=== PATIENT | male | born 1975 | race African-American/Black ===

== ENCOUNTER 2020-10-04 19:20 | Emergency (ER) | payer MEDICAID ==
[~2020-10-04] VITALS: Ht 182.9 cm; Wt 109.0 kg
[2020-10-04 21:46] LABS: BASOPHILS % 0.8 % (0.0-2.0); HEMATOCRIT. 39.9 % (42.0-52.0); HEMOGLOBIN. 13.2 g/dL (14.0-18.0); LYMPHOCYTES % 47.6 % (20.0-50.0); MEAN CORPUSCULAR HEMOGLOBIN 28.4 pg (28.0-32.0); MEAN CORPUSCULAR VOLUME 85.9 fL (80.0-94.0); MONOCYTES % 8.7 % (2.0-8.0); NEUTROPHILS % 39.9 % (40.0-76.0); PLATELET 345 x1000/uL (130-400); RED BLOOD CELL COUNT 4.65 mill/uL (4.7-6.1); RED CELL DISTRIBUTION WIDTH 19.5 % (11.6-14.6)
[2020-10-04 21:49] LABS: CHLORIDE 108 mEq/L (98-107)
[2020-10-04 23:54] VITALS: BP 137/98
== END 2020-10-04 23:55 | disposition home or self-care (01) ==
LOC: ER 19:20
DX: R07.9 Chest pain, unspecified (principal); R11.2 Nausea with vomiting, unspecified; R19.7 Diarrhea, unspecified; I10 Essential (primary) hypertension
CPT/HCPCS: 36415; 71045; 80053; 83880; 84484; 85025; 93005; 99285

== ENCOUNTER 2020-10-06 21:53 | Emergency (ER) | payer MEDICAID ==
[~2020-10-06] VITALS: Ht 175.3 cm; Wt 100.0 kg
[2020-10-06 22:51] LABS: CHLORIDE 98 mEq/L (98-107)
[2020-10-06 23:39] LABS: BASOPHILS % 0.3 % (0.0-2.0); EOSINOPHILS % 0.2 % (0.0-5.0); HEMATOCRIT. 45.2 % (42.0-52.0); LYMPHOCYTES % 10.9 % (20.0-50.0); MEAN CORPUSCULAR HEMOGLOBIN 28.2 pg (28.0-32.0); MEAN PLATELET VOLUME 7.7 fl (7.4-10.4); MONOCYTES % 5.8 % (2.0-8.0); NEUTROPHILS % 82.8 % (40.0-76.0); PLATELET 365 x1000/uL (130-400); RED BLOOD CELL COUNT 5.32 mill/uL (4.7-6.1); RED CELL DISTRIBUTION WIDTH 19.5 % (11.6-14.6)
[2020-10-06] MEDS ORDERED: IBUPROFEN 600MG TABLET PO ONE (23:45)
[2020-10-06] MEDS ORDERED: LORAZEPAM 1MG TABLET PO ONE (23:45)
[2020-10-07] MEDS ORDERED: MORPHINE SULFATE 4 MG/ML CPJ (NOT FOR IM USE) IV STA (00:15)
[2020-10-07] MEDS ORDERED: ONDANSETRON HCL 4MG/2ML INJ IV STA (00:15)
[2020-10-07 00:28] LABS: ETHANOL BLOOD < 10 mg/dL
[2020-10-07] MEDS ORDERED: LORAZEPAM 2MG/ML CPJ IV ONE (00:30)
[2020-10-07] MEDS ORDERED: IBUP-2028 MT (03:29)
[2020-10-07] MEDS ORDERED: ONDA4TAB5 MT (03:29)
[2020-10-07 04:20] VITALS: BP 119/69
== END 2020-10-07 04:36 | disposition home or self-care (01) ==
LOC: ER 21:53
DX: R07.89 Other chest pain (principal); F41.9 Anxiety disorder, unspecified; I10 Essential (primary) hypertension; F20.9 Schizophrenia, unspecified; F32.9 Major depressive disorder, single episode, unspecified
CPT/HCPCS: 36415; 71045; 76705; 80053; 80320; 83690; 83880; 84484; 85025; 93005; 96374; 96375; 99285; J2060; J2270; J2405; G0480

== ENCOUNTER 2021-04-17 11:15 | Emergency (ER) | payer MEDICAID ==
[~2021-04-17] VITALS: Ht 180.3 cm; Wt 118.0 kg
[~2021-04-17 11:15] MED LIST: IBUP-2028 MT; ONDA4TAB5 MT
[2021-04-17 12:05] LABS: BASOPHILS % 0.5 % (0.0-2.0); EOSINOPHILS % 1.4 % (0.0-5.0); HEMATOCRIT. 44.7 % (42.0-52.0); LYMPHOCYTES % 30.2 % (20.0-50.0); MEAN CORPUSCULAR HEMOGLOBIN 29.9 pg (28.0-32.0); MEAN CORPUSCULAR VOLUME 89.1 fL (80.0-94.0); MEAN PLATELET VOLUME 7.7 fl (7.4-10.4); MONOCYTES % 7.5 % (2.0-8.0); NEUTROPHILS % 60.4 % (40.0-76.0); PLATELET 268 x1000/uL (130-400); RED BLOOD CELL COUNT 5.02 mill/uL (4.7-6.1); RED CELL DISTRIBUTION WIDTH 15.9 % (11.6-14.6)
[2021-04-17 12:08] LABS: CHLORIDE 107 mEq/L (98-107)
[2021-04-17] MEDS ORDERED: ASPIRIN 81MG TABLET PO NR (12:15)
[2021-04-17] MEDS ORDERED: ONDANSETRON HCL 4MG/2ML INJ IV NR (13:45)
[2021-04-17] MEDS ORDERED: RISP1TAB97 MT (16:38)
[2021-04-17] MEDS ORDERED: ZYDS20 MT (16:39)
[2021-04-17 18:00] VITALS: BP 149/91
== END 2021-04-17 18:29 | disposition home or self-care (01) ==
LOC: ER 11:31
DX: R07.89 Other chest pain (principal); I10 Essential (primary) hypertension; Z86.59 Personal history of other mental and behavioral disorders
CPT/HCPCS: 36415; 71045; 80053; 83690; 83880; 84484; 85025; 85610; 93005; 96374; 99285; J2405; Z7610

== ENCOUNTER 2022-05-09 05:29 | Emergency (ER) | payer MEDICAID ==
[~2022-05-09] VITALS: Ht 180.3 cm; Wt 87.0 kg
[~2022-05-09 05:29] MED LIST changes: +RISP1TAB97 MT; +ZYDS20 MT
[2022-05-09] MEDS ORDERED: ACETAMINOPHEN 325MG TABLET PO ONE (06:00)
[2022-05-09 06:37] LABS: CHLORIDE 105 mEq/L (98-107)
[2022-05-09 06:44] LABS: ETHANOL BLOOD < 10 mg/dL
[2022-05-09 08:17] LABS: BASOPHILS % 0.3 % (0.0-2.0); EOSINOPHILS % 2.3 % (0.0-5.0); HEMATOCRIT. 42.4 % (42.0-52.0); HEMOGLOBIN. 14.4 g/dL (14.0-18.0); LYMPHOCYTES % 26.2 % (20.0-50.0); MEAN CORPUSCULAR HEMOGLOBIN 30.7 pg (28.0-32.0); MEAN CORPUSCULAR VOLUME 90.3 fL (80.0-94.0); MONOCYTES % 9.9 % (2.0-8.0); NEUTROPHILS % 61.3 % (40.0-76.0); RED CELL DISTRIBUTION WIDTH 14.1 % (11.6-14.6)
[2022-05-09 08:44] LABS: MEAN PLATELET VOLUME 8.4 fl (7.4-10.4)
[2022-05-09 08:45] LABS: PLATELET 309 x1000/uL (130-400)
[2022-05-09 09:03] LABS: CLARITY URINE CLEAR (CLEAR); COLOR URINE YELLOW (YELLOW); KETONES URINE NEGATIVE (NEGATIVE); LEUKOCYTE ESTERASE URINE NEGATIVE (NEGATIVE); NITRITE URINE NEGATIVE (NEGATIVE); OCCULT BLOOD URINE 1+ (NEGATIVE); PROTEIN URINE NEGATIVE (NEGATIVE); SPECIFIC GRAVITY URINE 1.005 (1.005-1.030); UROBILINOGEN URINE 0.2 E.U./dL (0.2-1.0)
[2022-05-09 09:21] LABS: *AMPHETAMINES SCREEN URINE PRESUMTIVE POSITIVE (NEGATIVE); *BARBITURATES SCREEN URINE NEGATIVE (NEGATIVE); *BENZODIAZEPINES SCREEN URINE NEGATIVE (NEGATIVE); *COCAINE SCREEN URINE NEGATIVE (NEGATIVE); CANNABINOID URINE SCREEN NEGATIVE (NEGATIVE); METHADONE URINE SCREEN NEGATIVE (NEGATIVE); OPIATES URINE SCREEN NEGATIVE (NEGATIVE); PHENCYCLIDINE URINE SCREEN NEGATIVE (NEGATIVE)
[2022-05-09 12:27] VITALS: BP 139/87
== END 2022-05-09 12:30 | disposition home or self-care (01) ==
LOC: ER 05:29
DX: R21 Rash and other nonspecific skin eruption (principal); F20.9 Schizophrenia, unspecified
CPT/HCPCS: 36415; 80053; 80305; 80320; 81003; 85025; 99283; G0480

== ENCOUNTER 2024-02-09 10:26 | Emergency (ER) | payer MEDICAID ==
[~2024-02-09] VITALS: Ht 172.7 cm; Wt 82.0 kg
[~2024-02-09 10:26] MED LIST changes: +RISP-28 MT; -RISP1TAB97 MT
[2024-02-09 10:29] VITALS: O2SAT 98
[2024-02-09] MEDS: RISPERIDONE 1MG TABLET PO SCH (11:15)
[2024-02-09] MEDS: OLANZAPINE 10MG TABLET PO SCH (11:15)
[2024-02-09 11:31] LABS: BASOPHILS % 0.5 % (0.0-2.0); EOSINOPHILS % 0.4 % (0.0-5.0); HEMATOCRIT. 44.1 % (42.0-52.0); HEMOGLOBIN. 14.8 g/dL (14.0-18.0); LYMPHOCYTES % 34.6 % (20.0-50.0); MEAN CORPUSCULAR HEMOGLOBIN 30.6 pg (28.0-32.0); MEAN CORPUSCULAR HGB CONC 33.5 g/dL (31.0-37.0); MEAN CORPUSCULAR VOLUME 91.3 fL (80.0-94.0); MEAN PLATELET VOLUME 7.2 fl (7.4-10.4); MONOCYTES % 5.3 % (2.0-8.0); NEUTROPHILS % 59.2 % (40.0-76.0); PLATELET 294 x1000/uL (130-400); RED BLOOD CELL COUNT 4.83 mill/uL (4.7-6.1); RED CELL DISTRIBUTION WIDTH 15.4 % (11.6-14.6); WHITE BLOOD COUNT 6.6 x1000/uL (4.5-11.0)
[2024-02-09 11:46] LABS: CHLORIDE 105 mEq/L (98-107); POTASSIUM 3.2 mEq/L (3.5-5.1); SODIUM 139 mEq/L (136-145)
[2024-02-09 11:47] LABS: CALCIUM 9.1 mg/dL (8.7-10.4); CARBON DIOXIDE 26 mEq/L (21-32)
[2024-02-09 11:52] LABS: GLUCOSE 82 mg/dL (70-105); UREA NITROGEN BLOOD 7 mg/dL (9-23)
[2024-02-09 11:53] LABS: ETHANOL BLOOD 135 mg/dL (<10)
[2024-02-10 11:40] LABS: CLARITY URINE CLEAR (CLEAR); COLOR URINE YELLOW (YELLOW); GLUCOSE URINE NEGATIVE (NEGATIVE); KETONES URINE TRACE (NEGATIVE); LEUKOCYTE ESTERASE URINE NEGATIVE (NEGATIVE); NITRITE URINE NEGATIVE (NEGATIVE); OCCULT BLOOD URINE NEGATIVE (NEGATIVE); PH URINE 6.5 (4.5-8.0); PROTEIN URINE NEGATIVE (NEGATIVE); SPECIFIC GRAVITY URINE 1.022 (1.005-1.030)
[2024-02-10 11:41] VITALS: BP 122/78; PULSE 81; RESP 16; TEMP 98.5
[2024-02-10 11:53] LABS: *AMPHETAMINES SCREEN URINE PRESUMPTIVE POSITIVE (NEGATIVE); *BARBITURATES SCREEN URINE NEGATIVE (NEGATIVE); *BENZODIAZEPINES SCREEN URINE NEGATIVE (NEGATIVE); *COCAINE SCREEN URINE NEGATIVE (NEGATIVE)
[2024-02-10 11:54] LABS: CANNABINOID URINE SCREEN PRESUMPTIVE POSITIVE (NEGATIVE); ECSTASY MDMA SCREEN URINE NEGATIVE (NEGATIVE); METHADONE URINE SCREEN NEGATIVE (NEGATIVE); OPIATES URINE SCREEN NEGATIVE (NEGATIVE); PHENCYCLIDINE URINE SCREEN NEGATIVE (NEGATIVE)
== END 2024-02-10 12:32 | disposition home or self-care (01) ==
LOC: ER 10:26
DX: F20.9 Schizophrenia, unspecified (principal); R10.9 Unspecified abdominal pain; Z20.822 Contact with and (suspected) exposure to COVID-19
CPT/HCPCS: 36415; 80048; 80305; 80320; 81003; 82962; 85025; 87426; 99285; G0480

== ENCOUNTER 2024-07-23 15:59 | Emergency (ER) | payer MEDICAID, OTHER ==
[~2024-07-23] VITALS: Ht 175.3 cm; Wt 100.0 kg
[2024-07-23 16:01] VITALS: O2SAT 98
[2024-07-23] MEDS: SODIUM CHLORIDE 0.9% 1,000 ML IV ONE (16:33)
[2024-07-23 16:45] LABS: CARBON DIOXIDE 27 mEq/L (21-32); CHLORIDE 105 mEq/L (98-107); POTASSIUM 4.4 mEq/L (3.5-5.1); SODIUM 138 mEq/L (136-145)
[2024-07-23 16:46] LABS: BASOPHILS % 0.5 % (0.0-2.0); CALCIUM 9.4 mg/dL (8.7-10.4); EOSINOPHILS % 2.9 % (0.0-5.0); HEMATOCRIT. 43.6 % (42.0-52.0); HEMOGLOBIN. 14.5 g/dL (14.0-18.0); LYMPHOCYTES % 39.1 % (20.0-50.0); MEAN CORPUSCULAR HEMOGLOBIN 30.8 pg (28.0-32.0); MEAN CORPUSCULAR HGB CONC 33.2 g/dL (31.0-37.0); MEAN CORPUSCULAR VOLUME 92.7 fL (80.0-94.0); MEAN PLATELET VOLUME 7.5 fl (7.4-10.4); MONOCYTES % 10.6 % (2.0-8.0); NEUTROPHILS % 46.9 % (40.0-76.0); PLATELET 309 x1000/uL (130-400); RED CELL DISTRIBUTION WIDTH 14.2 % (11.6-14.6); WHITE BLOOD COUNT 5.9 x1000/uL (4.5-11.0)
[2024-07-23 16:50] LABS: CREATININE 1.1 mg/dL (0.6-1.3)
[2024-07-23 16:51] LABS: GLUCOSE 103 mg/dL (70-105); UREA NITROGEN BLOOD 18 mg/dL (9-23)
[2024-07-23 16:52] LABS: D-DIMER < 0.19 mg/L FEU (<0.50); INR 0.9; PARTIAL THROMBOPLASTIN TIME 27.3 sec (23.4-31.0); PROTHROMBIN TIME 10.5 sec (9.6-11.0)
[2024-07-23 16:53] LABS: TROPONIN I HIGH SENSITIVITY 8 ng/L (3.0-53)
[2024-07-23 16:59] LABS: ETHANOL BLOOD < 10 mg/dL (<10)
[2024-07-23] MEDS: NITROGLYCERIN SPRAY/4.9GM CAN TL ONE (17:30)
[2024-07-23 17:48] LABS: *AMPHETAMINES SCREEN URINE NEGATIVE (NEGATIVE)
[2024-07-23 17:49] LABS: *BARBITURATES SCREEN URINE NEGATIVE (NEGATIVE); *BENZODIAZEPINES SCREEN URINE NEGATIVE (NEGATIVE); *COCAINE SCREEN URINE NEGATIVE (NEGATIVE); CANNABINOID URINE SCREEN NEGATIVE (NEGATIVE); ECSTASY MDMA SCREEN URINE NEGATIVE (NEGATIVE); METHADONE URINE SCREEN NEGATIVE (NEGATIVE); OPIATES URINE SCREEN NEGATIVE (NEGATIVE); PHENCYCLIDINE URINE SCREEN NEGATIVE (NEGATIVE)
[2024-07-23 19:27] LABS: TROPONIN I HIGH SENSITIVITY 9 ng/L (3.0-53)
[2024-07-23 19:30] VITALS: BP 139/97; PULSE 88; RESP 21; TEMP 36.94740; O2SAT 99
== END 2024-07-23 20:14 ==
LOC: ER 15:59 → EDBEDREQ 16:39 → ER 20:14
DX: R07.89 Other chest pain (principal); F20.9 Schizophrenia, unspecified; F12.90 Cannabis use, unspecified, uncomplicated; F15.90 Other stimulant use, unspecified, uncomplicated; F10.20 Alcohol dependence, uncomplicated
CPT/HCPCS: 80305; 80048; 80320; 83880; 85025; 85379; 85610; 85730; 84484; 36415; 71045; 93005; 96360; 99285; J7030; G0480